=== PATIENT | female | born 1965 | race Caucasian/White ===

== ENCOUNTER 2023-08-29 12:01 | Outpatient (REF) | payer MEDICARE, SELFPAY ==
[2023-08-29 12:24] LABS: MANUAL DIFF FLAG NO
[2023-08-29 12:34] LABS: Basophils Absolute Auto 0.1 X10*3/uL (0.0-0.2); Basophils Percent Auto 0.9 % (0-2); Eosinophils Absolute Auto 0.2 X10*3/uL (0.0-0.4); Eosinophils Percent Auto 2.2 % (0-4); Hematocrit 41.1 % (37.0-47.0); Hemoglobin 13.9 g/dl (12.0-16.0); Imm Gran Abs Auto 0.04 X10*3/uL (0.00-0.03); Imm Gran Pct Auto 0.5 % (0.0-0.4); Lymphocytes Absolute Auto 1.8 X10*3/uL (1.2-4.9); Lymphocytes Percent Auto 24.2 % (20-40); Mean Corpuscular HGB Conc 33.8 g/dl (31.0-35.0); Mean Corpuscular Hemoglobin 29.6 pg (27.0-33.0); Mean Corpuscular Volume 87.4 fL (80.0-98.0); Mean Platelet Volume 9.8 fL (9.4-12.3); Monocytes Absolute Auto 0.5 X10*3/uL (0.1-1.2); Monocytes Percent Auto 6.5 % (2-11); Neutrophils Absolute Auto 4.9 x10*3/uL (2.0-8.3); Neutrophils Percent Auto 65.7 % (45-73); Platelet Count 216 X10*3/uL (160-400); Red Cell Distribution Width 12.5 % (11.0-16.0); White Blood Count 7.4 X10*3/uL (4.8-10.8)
[2023-08-29 12:53] LABS: Estimated Average Glucose 154 mg/dL
[2023-08-29 13:01] LABS: Alanine Aminotransferase 19 U/L (0-31); Albumin Level 4.2 g/dL (3.5-5.0); Alkaline Phosphatase 55 U/L (39-117); Anion Gap 12 (12-20); Aspartate Amino Transferase 18 U/L (5-31); Bilirubin Total 0.6 mg/dL (0.0-1.0); Blood Urea Nitrogen 14 mg/dL (9-16); Calcium 9.6 mg/dL (8.4-10.2); Carbon Dioxide 25 mmol/L (22-29); Chloride 106 mmol/L (96-108); Estimated Glomerular Filt Rate > 60; Glucose Random 163 mg/dL (60-115); Potassium 4.1 mmol/L (3.3-5.1); Sodium 139 mmol/L (135-145); Total Protein 6.9 g/dL (6.5-8.0)
[2023-08-29 14:39] LABS: Creatinine Urine 205.96 mg/dL; Microalbum/Creatinine Ratio Ur 5.3 ug/mg cr (<30)
== END 2023-08-29 12:02 | disposition home or self-care (01) ==
LOC: HO.LAB 12:01
PROVIDERS: PCP Internal Medicine; Visit Provider Internal Medicine
DX: E11.9 Type 2 diabetes mellitus without complications (principal); E78.00 Pure hypercholesterolemia, unspecified; F51.5 Nightmare disorder; N39.3 Stress incontinence (female) (male); I10 Essential (primary) hypertension
CPT/HCPCS: 36415; 80053; 82043; 82570; 83036; 85025

== ENCOUNTER 2024-02-09 11:20 | Outpatient (REF) | payer MEDICARE, SELFPAY ==
[2024-02-09 12:33] LABS: Estimated Average Glucose 177 mg/dL; Hemoglobin A1c % 7.8 % (<6.0); Total Hemoglobin (HGBA1C) 3572.1264 umol/L
[2024-02-09 12:59] LABS: Alanine Aminotransferase 24 U/L (0-31); Albumin Level 4.3 g/dL (3.5-5.0); Alkaline Phosphatase 60 U/L (39-117); Anion Gap 11 (12-20); Aspartate Amino Transferase 23 U/L (5-31); Bilirubin Total 0.6 mg/dL (0.0-1.0); Blood Urea Nitrogen 11 mg/dL (9-16); Calcium 9.7 mg/dL (8.4-10.2); Carbon Dioxide 29 mmol/L (22-29); Chloride 102 mmol/L (96-108); Cholesterol 197 mg/dL (<200); Estimated Glomerular Filt Rate > 60; Glucose Random 217 mg/dL (60-115); HDL Cholesterol 55 mg/dL (>40); LDL Cholesterol Calculated 103 mg/dL (<100); Sodium 138 mmol/L (135-145); Total Protein 7.1 g/dL (6.5-8.0); Triglycerides 197 mg/dL (<150)
== END 2024-02-09 11:21 | disposition home or self-care (01) ==
LOC: HO.LAB 11:20
PROVIDERS: PCP Internal Medicine; Visit Provider Internal Medicine
DX: E11.9 Type 2 diabetes mellitus without complications (principal); E78.00 Pure hypercholesterolemia, unspecified; I10 Essential (primary) hypertension; J37.0 Chronic laryngitis; M76.62 Achilles tendinitis, left leg
CPT/HCPCS: 36415; 80053; 80061; 83036

== ENCOUNTER 2024-03-22 10:12 | Outpatient (REF) | payer MEDICARE, SELFPAY ==
[2024-03-22 11:56] LABS: Estimated Average Glucose 180 mg/dL; Hemoglobin A1C 226.4394 umol/L; Hemoglobin A1c % 7.9 % (<6.0); Total Hemoglobin (HGBA1C) 3593.5862 umol/L
[2024-03-22 12:08] LABS: Alanine Aminotransferase 31 U/L (0-31); Albumin Level 4.3 g/dL (3.5-5.0); Alkaline Phosphatase 55 U/L (39-117); Anion Gap 12 (12-20); Aspartate Amino Transferase 29 U/L (5-31); Bilirubin Total 0.7 mg/dL (0.0-1.0); Blood Urea Nitrogen 14 mg/dL (9-16); Calcium 9.8 mg/dL (8.4-10.2); Carbon Dioxide 28 mmol/L (22-29); Chloride 103 mmol/L (96-108); Estimated Glomerular Filt Rate > 60; Glucose Random 193 mg/dL (60-115); Potassium 4.1 mmol/L (3.3-5.1); Sodium 139 mmol/L (135-145); Total Protein 7.1 g/dL (6.5-8.0)
== END 2024-03-22 10:13 | disposition home or self-care (01) ==
LOC: HO.LAB 10:12
PROVIDERS: PCP Internal Medicine; Visit Provider Internal Medicine
DX: E11.65 Type 2 diabetes mellitus with hyperglycemia (principal); E78.00 Pure hypercholesterolemia, unspecified; I10 Essential (primary) hypertension; Z68.37 Body mass index [BMI] 37.0-37.9, adult
CPT/HCPCS: 36415; 80053; 83036

== ENCOUNTER 2024-08-02 10:55 | Outpatient (REF) | payer MEDICARE, SELFPAY ==
[2024-08-02 12:16] LABS: Estimated Average Glucose 146 mg/dL; Hemoglobin A1c % 6.7 % (<6.0); Total Hemoglobin (HGBA1C) 3930.9079 umol/L
[2024-08-02 12:39] LABS: Alanine Aminotransferase 32 U/L (0-31); Albumin Level 4.7 g/dL (3.5-5.0); Alkaline Phosphatase 57 U/L (39-117); Anion Gap 12 (12-20); Aspartate Amino Transferase 28 U/L (5-31); Bilirubin Total 0.8 mg/dL (0.0-1.0); Blood Urea Nitrogen 16 mg/dL (9-16); Calcium 9.9 mg/dL (8.4-10.2); Carbon Dioxide 27 mmol/L (22-29); Chloride 104 mmol/L (96-108); Cholesterol 171 mg/dL (<200); Estimated Glomerular Filt Rate > 60; Glucose Random 135 mg/dL (60-115); HDL Cholesterol 51 mg/dL (>40); LDL Cholesterol Calculated 95 mg/dL (<100); Potassium 4.2 mmol/L (3.3-5.1); Sodium 139 mmol/L (135-145); Total Protein 8.1 g/dL (6.5-8.0); Triglycerides 127 mg/dL (<150)
== END 2024-08-02 10:56 | disposition home or self-care (01) ==
LOC: HO.LAB 10:55
PROVIDERS: PCP Internal Medicine; Visit Provider Internal Medicine
DX: E11.65 Type 2 diabetes mellitus with hyperglycemia (principal); E78.00 Pure hypercholesterolemia, unspecified; F51.5 Nightmare disorder; I10 Essential (primary) hypertension; Z68.36 Body mass index [BMI] 36.0-36.9, adult
CPT/HCPCS: 36415; 80053; 80061; 83036

== ENCOUNTER 2025-01-15 09:34 | Outpatient (REF) | payer MEDICARE, SELFPAY ==
--- OUTSIDE RECORDS SUMMARY | 2025-01-15 10:40 | XMS_ITS | Patient Health Record ---
Author Organization [facility] Delia garcia Billing Info Address [address] [place], [place] [address] [address] Care Team Providers Care Landscaper Helper Name Role Phone IVON LEDBETTER Unavailable [phone] Allergies Allergen (clinical drug ingredient) Drug/Non Drug Allergy documented on EMR Reaction Allergy Type Onset Date Status benazepril Benazepril HCl Unknown Drug Allergy A ctive Reason For Referral No Information Medications Medication SIG (Take, Route, Frequency, Duration) Notes Start Date End Date Status Bactrim DS 800-160 MG 1 tablet Orally Tw ice a day for 10 day(s) 07/28/2021 Active Bisoprolol-Hydrochlorothia zide Active Jardiance Active Janumet Active Social History Tobacco Status: Question Answer Notes Patient is a non tobacco user Problems Problem Type SNOMED Code ICD Code Onset Dates Problem Status W/U Status Risk Notes Problem [id number] Ventral hernia without obstruction or gangrene (K43.9) Active confirmed Plan Of Treatment No Information Insurance Providers Payer Name Payer Address Payer Phone Subscriber Number Group Number Insured Name Patient Relationship to Insured Coverage Start Date Coverage End Date [facility] [address] [place], [place] [id number] [phone] [id number] Thi Garcia Self - patient is the insured Medical (General) History Medical History History ICD Code Hypertension type II diabetes Surgical History Surgery Date(Month/Year) Nose Surgery
--- OUTSIDE RECORDS SUMMARY | 2025-01-15 10:40 | XMS_ITS | Clinical Summary ---
Author Organization [employer] Address [address] [place] [address] Care Team Providers Care Ribbon Cleaner Name Role Phone Asha Michaels MD Primary Care Provider Allergies Active Allergy Reactions Criticality Noted Date Comments Benazepril 04/18/2018 Medications bisoprolol-hydr oCHLOROthiazide (Ziac) 5-6.25 MG tablet Take 2 tablets by mouth in the morning. 08/02/2022 Active Janumet 50-500 MG tablet Take 1 tablet by mouth 2 times daily. 07/30/2022 Active traZODone (Desyrel) 100 MG tablet Take 100 mg by mouth at bedtime. 08/04/2022 Active sertraline (Zoloft) 100 MG tablet TAKE 1 & 1/2 (ONE & ONE-HALF) TABLETS BY MOUTH ONCE DAILY 07/30/2022 Active spironolactone (Aldactone) 25 MG tablet Take 25 mg by mouth Once per day. 12/01/2023 Active atorvastatin (Lipitor) 20 MG tablet Take 20 mg by mouth Once per day. 07/29/2023 Active traZODone (Desyrel) 50 MG tablet Take 50 mg by mouth at bedtime. 07/08/2009 Active Active Problems Problem Noted Date Diagnosed Date Severe obesity (BMI 35.0-39.9) with comorbidity 12/30/2023 Hypertension 12/30/2023 Diabetes mellitus 12/30/2023 Glaucoma suspect of both eyes 12/30/2023 Nuclear sclerosis of both eyes 12/30/2023 Obstructive sleep apnea syndrome 02/19/2009 Social History Tobacco Use Types Packs/Day Years Used Date Smoking Tobacco: Never Passive Smoke Exposure: Past Tobacco Cessation:Counseling Given: Not Answered Comments Unknown Sex and Gender Information Value Date Recorded Sex Assigned at Female 06/30/2022 11:54 AM EST Legal Sex Female 11:52 AM EST Gender Identity Female 06/30/2022 11:54 AM EST Sexual Orientation Straight 06/30/2022 11 :54 AM EST Last Filed Vital Signs Vital Sign Reading Time Taken Comments Blood Pressure 130/82 12/30/2023 3:45 PM EDT Pulse - - Temperature 36.2 C (97.2 F) 12/30/2023 3:45 PM EDT Respiratory Rate - - Oxygen Saturation - - Inhaled Oxygen Concentration - - Weight - - Height - - Body Mass Index - - Plan of Treatment Health Maintenance Due Date Last Done Comments CT Colonography 1966 Colonoscopy 1966 Colorectal Cancer Screening 1966 Depression Screening 1966 Diabetes: Hemoglobin A1C 1966 FIT DNA/Cologuard 1966 FIT 1966 FOBT 1966 HIV Screening 1966 Lipid Panel 1966 SDOH Screening 1966 Sigmoidoscopy 1966 Disability Screening 1966 Diabetes: Foot Exam 01/22/1976 Alcohol/Substance Use Screening 1978 Tobacco Screening 1978 Hepatitis C Screening 01/22/1984 Diabetes: Urine Protein Screening 1985 Hepatitis B Vaccines (1 of 3 - 19+ 3-dose series) 1985 Pap Smear 1987 Cervical Cancer Screening 01/22/1996 HPV/Cotest 01/22/1996 Mammogram 2006 Pneumococcal Vaccine: 50+ Years (2 of 2 - PCV) 07/07/2010 07/07/2009, 08/03/2004 COVID-19 Vaccine (2 - 2023- season) 2024 11/22/2021 Eye Exam 12/29/2024 12/30/2023, 0810/2023, 12/30/2023, Additional history exists Influenza Vaccine (#1) 2025 , 03/30/2022, 03/30/2022, Additional history exists DTaP/Tdap/Td Vaccines (2 - Td or Tdap) 08/21/2031 08/20/2021, 08/20/2010 RSV Patients and Patients Aged 60 years or older (1 - 1-dose 75+ series) 2041 Zoster Vaccines Completed 05/30/2022, 03/30/2022 HIB Vaccines Aged Out No longer eligi ble based on patient's age to complete this topic HPV Vaccines Aged Out No longer eligi ble based on patient's age to complete this topic Hepatitis A Vaccines Aged Out No long er eligible based on patient's age to complete this topic IPV Vaccines Aged Out No longer eligi ble based on patient's age to complete this topic Meningococcal B Vaccine Aged Out No l onger eligible based on patient's age to complete this topic Meningococcal Vaccine Aged Out No pratik akin eligible based on patient's age to complete this topic RSV under 20 months Aged Out No longe r eligible based on patient's age to complete this topic Rotavirus Vaccines Aged Out No longer eligible based on patient's age to complete this topic Insurance [facility] Care Teams Ribbon Cleaner Relationship Specialty Start Date End Date Asha Michaels MD [address] [place] [address] [place] [address] PCP - General 05/05/23
--- OUTSIDE RECORDS SUMMARY | 2025-01-15 10:40 | XMS_ITS | Clinical Summary ---
Author Organization [facility] Address [address] [place] [id number] Phone Care Team Providers Care University Relations Vice President Name Role Phone Daljit Roth MD Primary Care Provider [phone] Allergies Active Allergy Reactions Criticality Noted Date Comments Benazepril 04/18/2018 Social History Tobacco Use Types Packs/Day Years Used Date Smoking Tobacco: Never Assessed Education Answer Date Recorded Are you interested in more education? Not on ag e 09/11/2022 Are you concerned about learning? Not on file 09/11/2022 No 09/11/2022 No 09/11/2022 Digital Access Answer Date Recorded No 10/10/2022 No 10/10/2022 Reliable internet access at home? Not on file 10/10/2022 Device with a working camera? Not on file Comments Unknown Sex and Gender Information Value Date Recorded Sex Assigned at Female 10/11/2019 3:59 PM EDT Legal Sex Female 5:05 PM EST Gender Identity Female 10/11/2019 3:59 PM EDT Sexual Orientation Straight 10/11/2019 3: 59 PM EDT Last Filed Vital Signs Vital Sign Reading Time Taken Comments Blood Pressure 165/97 08/29/2022 5:33 PM EDT Pulse 78 08/29/2022 4:11 PM EDT Temperature 36.4 C (97.5 F) 08/29/2022 4:11 PM EDT Respiratory Rate 16 08/29/2022 4:11 PM EDT Oxygen Saturation 97% 08/29/2022 8:00 PM EDT Inhaled Oxygen Concentration - - Weight 102.1 kg (225 lb) 08/29/2022 4:11 PM EDT Height 165.1 cm (5' 5 ) 08/29/2022 4:11 PM EDT Body Mass Index 37.44 08/29/2022 4:11 PM EDT Plan of Treatment Health Maintenance Due Date Last Done Comments LIPID PANEL 1966 DEPRESSION SCREENING 1978 SMOKING Hx and SMOKELESS TOBACCO SCREENING 1979 HEPATITIS C SCREENING 01/22/1984 HIV ONE-TIME SCREENING (18-6 5 YEARS) 01/22/1984 PAP SMEAR 1987 MAMMOGRAM 2006 COLOGUARD 2011 COLONOSCOPY 2011 COLORECTAL CANCER SCREENING 2011 FIT TEST 2011 FOBT 2011 SIGMOIDOSCOPY 2011 VIRTUAL COLONOSCOPY 2011 PNEUMOCOCCAL VACCINES (50+ years) (2 of 2 - PCV) 01/22/2016 07/07/2009, 08/03/2004 ZOSTER VACCINES (1 of 2) 01/22/2016 SCREENING FOR DIABETES 10/10/2022 10/11/2019 COVID-19 VACCINE (2 - 2023-2 5 season) 2024 11/22/2021 Adult Td,Tdap Booster 08/21/2031 08/20/2021 , 08/20/2010 HEPATITIS A VACCINES Aged Out No long er eligible based on patient's age to complete this topic HIB VACCINES Aged Out No longer eligi ble based on patient's age to complete this topic MENINGOCOCCAL VACCINES (ACWY) Aged Out No longer eligible based on patient's age to complete this topic MENINGOCOCCAL VACCINES (B) Aged Out N o longer eligible based on patient's age to complete this topic Medical Devices Not on file Insurance [employer] [place] [id number] [employer] [place] [phone] [employer] RE[employer] [place]AC[place] [address] [address] [place] [address] MEDICARE REPLACEMENT Care Teams University Relations Vice President Relationship Specialty Start Date End Date Daljit Roth MD [address] [address] PCP - General 10/11/19 Additional Source Comments The information contained in this document represents components of the legal health record. It is not the complete legal health record.[facility]
[2025-01-15 10:50] LABS: Hemoglobin A1C 264.3636 umol/L; Total Hemoglobin (HGBA1C) 3624.7621 umol/L
[2025-01-15 10:57] LABS: Alanine Aminotransferase 22 U/L (0-31); Albumin Level 4.5 g/dL (3.5-5.0); Alkaline Phosphatase 60 U/L (39-117); Anion Gap 11 (12-20); Aspartate Amino Transferase 27 U/L (5-31); Blood Urea Nitrogen 11 mg/dL (9-16); Calcium 9.2 mg/dL (8.4-10.2); Carbon Dioxide 27 mmol/L (22-29); Chloride 104 mmol/L (96-108); Cholesterol 225 mg/dL (<200); Estimated Glomerular Filt Rate > 60; HDL Cholesterol 53 mg/dL (>40); Potassium 4.0 mmol/L (3.3-5.1); Sodium 138 mmol/L (135-145); Total Protein 6.8 g/dL (6.5-8.0); Triglycerides 238 mg/dL (<150)
[2025-01-15 13:02] LABS: Microalbum/Creatinine Ratio Ur 5.0 ug/mg cr (<30)
== END 2025-01-15 09:35 | disposition home or self-care (01) ==
LOC: HO.LAB 09:34
PROVIDERS: PCP Internal Medicine; Visit Provider Internal Medicine
DX: I10 Essential (primary) hypertension (principal); E11.9 Type 2 diabetes mellitus without complications; E78.00 Pure hypercholesterolemia, unspecified; R10.9 Unspecified abdominal pain; R74.01 Elevation of levels of liver transaminase levels
CPT/HCPCS: 36415; 80053; 80061; 82043; 82570; 83036